=== PATIENT | male | born 1995 | race Two or more races ===

== ENCOUNTER 2019-10-10 16:53 | Emergency (ER) | payer MEDICAID ==
[~2019-10-10] VITALS: Ht 172.7 cm; Wt 95.3 kg
[~2019-10-10 16:53] MED LIST: AMOXICILLIN500 MG ORAL; GUAIFENESI100 MG/5 M ORAL; PROMETHAZINE-D118 ML ORAL
--- NOTE | 2019-10-10 17:03 | NUR ---
ED Nurse Note: Pt walked into ED w/ c/o pain R hand, edema on knuckles. Area is red and slightly swollen. Pt states he fractured R hand 2 years ago. Denies numbness/tingling. Pt is alert and orientedx4, ambulatory. Pt bilateral pulses present.
[2019-10-10 17:08] VITALS: BP 124/89
--- NOTE | 2019-10-10 18:05 | Emergency Room Report ---
History of Present Illness General Chief Complaint: Upper Extremity Injury Source: Patient Present Illness HPI 23-year-old male presents to the emergency department complaining of 4/10 in severity pain, swelling and erythema to the right third knuckle x2 days. Patient reports history of fracture in that area many years ago he denies appreciable trauma or fall. Patient denies fevers or chills he is right-hand dominant. Denies notable recent open wounds near affected area. Denies hx of gout or gonorrhea. Denies numbness tingling or loss of sensation or gross motor movements of the extremities, incontinence of bowel or bladder. Denies CP , Palpitations, LOC, AMS, dizziness, Changes in Vision, weakness or a sudden severe headache. Allergies: Coded Allergies: No Known Allergies (Unverified , 09/26/19) Patient History Past Medical History: see triage record Past Surgical History: none Pertinent Family History: none Immunizations: UTD Reviewed Nursing Documentation: PMH: Agreed; PSxH: Agreed Nursing Documentation-PMH Past Medical History: No Stated History Review of Systems All Other Systems: negative except mentioned in HPI Physical Exam Vital Signs Date Time Temp Pulse Resp B/P (MAP) Pulse Ox O2 Delivery O2 Flow Rate FiO2 10/10/19 16:58 98.4 92 17 133/86 (102) 97 Room Air Sp02 EP Interpretation: reviewed, normal General Appearance: no apparent distress, alert, GCS 15, non-toxic Head: normocephalic, atraumatic Eyes: bilateral eye normal inspection, bilateral eye PERRL ENT: hearing grossly normal, normal voice Neck: full range of motion Respiratory: lungs clear, normal breath sounds, speaking full sentences Cardiovascular #1: regular rate, rhythm Musculoskeletal: normal range of motion, gait/station normal, tender - knuckle of the 3rd right digit, swelling - knuckle of the 3rd right digit Neurologic: alert, motor strength/tone normal, oriented x3, sensory intact, responsive, speech normal Psychiatric: judgement/insight normal Skin: other - erythema and warmth to the knuckle of the 3rd right digit Medical Decision Making PA Attestation Dr. Faye is my supervising Physician whom patient management has been discussed with. Diagnostic Impression: Primary Impression: Cellulitis Qualified Codes: L03.011 - Cellulitis of right finger ER Course 23-year-old male presents to the emergency department complaining of 4/10 in severity pain, swelling and erythema to the right third knuckle x2 days. Patient reports history of fracture in that area many years ago he denies appreciable trauma or fall. Patient denies fevers or chills he is right-hand dominant. Denies notable recent open wounds near affected area. Denies hx of gout or gonorrhea. Denies numbness tingling or loss of sensation or gross motor movements of the extremities, incontinence of bowel or bladder. Denies CP , Palpitations, LOC, AMS, dizziness, Changes in Vision, weakness or a sudden severe headache. Ddx considered but are not limited to cellulitis, Necrotizing fasciitis, allergic reaction, burn, dermatitis, fracture, d/L, gout, Vital signs: are WNL, pt. is afebrile H&PE are most consistent with Cellulitis ORDERS: x-ray hand r/o fx. ED INTERVENTIONS: -Motrin PO DISCHARGE: At this time pt. is stable for d/c to home. Will provide printed patient care instructions, and any necessary prescriptions. Care plan and follow up instructions have been discussed with the patient prior to discharge. Other X-Ray Diagnostic Results Other X-Ray Diagnostic Results : X-Ray ordered: Right hand # of Views/Limited Vs Complete: 3 View Indication: Pain EP Interpretation: Yes PA Xray: Interpretation reviewed, by supervising MD, and agrees with findings. Interpretation: no dislocation, no soft tissue swelling, no fractures Impression: No acute disease Electronically Signed by: Janee Haddad PA-C Last Vital Signs Date Time Temp Pulse Resp B/P (MAP) Pulse Ox O2 Delivery O2 Flow Rate FiO2 10/10/19 17:08 98.6 75 17 124/89 99 Room Air Disposition: HOME, SELF-CARE Condition: Stable Scripts Ibuprofen* (MOTRIN*) 600 Mg Tablet 600 MG ORAL THREE TIMES A DAY, #30 TAB 0 Refills Prov: Janee Haddad 10/10/19 Trimethoprim/Sulfamethoxazole 160/800* (BACTRIM DS TABLET*) 1 Each Tablet 1 TAB ORAL TWICE A DAY for 7 Days, #14 TAB Prov: Janee Haddad 10/10/19 Cephalexin* (KEFLEX*) 500 Mg Capsule 500 MG ORAL EVERY 12 HOURS for 7 Days, #14 CAP 0 Refills Prov: Janee Haddad 10/10/19 Patient Instructions: Cellulitis, [id number] Additional Instructions: Take medications as directed. Follow up with a Primary Care Provider in 3-5 days, even if your symptoms have resolved. Return sooner to ED if new symptoms occur, or current symptoms become worse. - Please note that this Emergency Department Report was dictated using [employer] and school visitor technology software, occasionally this can lead to erroneous entry secondary to interpretation by the dictation equipment. Janee Haddad Oct 10, 2019 18:05
--- NOTE | 2019-10-10 18:05 | Diagnostic Imaging Report ---
EXAM: XR Right Hand Complete, 3 or More Views CLINICAL HISTORY: PAIN TECHNIQUE: Frontal, lateral and oblique views of the right hand. COMPARISON: No relevant prior studies available. FINDINGS: Bones/joints: Mildly anteriorly angulated fifth metacarpal could represent old fracture. Otherwise unremarkable bones. No dislocation. Soft tissues: Unremarkable. No radiopaque foreign body. IMPRESSION: No acute abnormality.
[2019-10-10] MEDS ORDERED: BACTRIM DS TAB1 EAC1 ORAL (18:06)
[2019-10-10] MEDS ORDERED: CEPHALEXIN500 MG ORAL (18:06)
[2019-10-10] MEDS ORDERED: IBUPROFEN600 MG ORAL (18:06)
[2019-10-10 18:32] VITALS: BP 121/87
--- NOTE | 2019-10-10 18:32 | NUR ---
ER DISCHARGE NOTE: Patient is cleared to be discharged per ERMD, pt is aox4, on room air, with stable vital signs. pt was given dc and prescription instructions, pt was able to verbalize understanding, pt id band removed. pt is able to ambulate with steady gait. pt took all belongings.
== END 2019-10-10 18:32 | disposition home or self-care (01) ==
LOC: EMR 17:50
DX: L03.011 Cellulitis of right finger (principal)
CPT/HCPCS: 73130; Z7502; 99283